=== PATIENT | male | born 1940 | race Caucasian/White ===

== ENCOUNTER 2018-07-16 10:00 | Emergency (ER) | payer MEDICARE ==
[2018-07-16 10:21] VITALS: TEMP 98.8
--- NOTE | 2018-07-16 10:41 | ED.PDOC ---
History of Present Illness - General Chief Complaint: Lower Extremity Injury Stated Complaint: right ankle pain and swelling Time Seen by Provider: 07/16/18 10:05 Source: patient Exam Limitations: no limitations - History of Present Illness Initial Comments: Hung Polanco 78 y/o male stated that he fell off a ladder at home one week ago 08 July 2018 at his house in [place] was seen initially in [facility] ER but was transported to Trauma center and was work up no intracranial bleed noted since he also takes blood thinner for his A.Fib sent home with diagnosis of concussion .But since incident had also been having dull steady right ankle pain with pain on weight bearing since incident. Occurred: last week Pain - Lower Extremity: moderate: Right Ankle Method of Injury: fell, other - see hpi Improving Factors: rest Worsening Factors: movement Associated Symptoms: pain Allergies/Adverse Reactions: Allergies NO KNOWN ALLERGY Allergy (Verified 07/16/18 10:18) Home Medications: Ambulatory Orders Colchicine W/ Probenecid [Probenecid/Colchicine 0.5-500 mg] 1 tab PO BID 7 Days #30 tab 07/16/18 predniSONE 20 mg PO DAILY #10 tab 07/16/18 Review of Systems - Review of Systems Constitutional: States: no symptoms reported EENTM: States: no symptoms reported Respiratory: States: no symptoms reported Cardiology: States: no symptoms reported Gastrointestinal/Abdominal: States: no symptoms reported Genitourinary: States: no symptoms reported Musculoskeletal: States: see HPI Skin: States: no symptoms reported Past Medical History (General) - Patient Medical History Hx Cardiac Disorders: Yes - A-fib Hx Hypertension: Yes Hx Cancer: Yes - melanoma Surgical History: other - knee right - Vaccination History Hx Influenza Vaccination: No - Social History Hx Tobacco Use: No Hx Alcohol Use: Yes - occasional Hx Substance Use: No Hx Depression: No Family Medical History - Family History Mother Family History: Unknown Hx Family Hypertension: Yes - multiple family member Hx Cardiac Disease: Yes - multiple family member Hx Family Diabetes: Yes - multiple family memeber Physical Exam - Physical Exam General Appearance: Alert, Comfortable, No apparent distress Eyes, Ears, Nose, Throat: normal ENT inspection Neck: non-tender, full range of motion, supple Cardiovascular/Respiratory: normal peripheral pulses, no JVD, normal breath sounds, irregularly irregular - controlled ventricular rate Gastrointestinal/Abdominal: non-tender, no organomegaly Back: no CVA tenderness, no vertebral tenderness Thigh/Hip: non-tender, normal ROM Leg: non-tender, no evidence of injury Ankle: non-tender, limited ROM - painful medial malleolus right-inversion , eversion less on plantar flexion Progress - Progress Progress: 07/16/18 10:45 Vital Signs - 8 hr 07/16/18 10:09 Temperature 98.8 F Pulse Rate [ 47 L pulse ox] Respiratory 20 Rate Blood Pressure 139/76 [Right Arm] O2 Sat by Pulse 98 Oximetry - Results/Orders Results/Orders: Laboratory Results - last 24 hr 07/16/18 10:58 Uric Acid 9.0 H - EKG/XRAY/CT XRAY: ankle - no fracture right Departure - Departure Clinical Impression: Ankle pain, right Qualifiers: Chronicity: unspecified Qualified Code(s): M25.571 - Pain in right ankle and joints of right foot Gout attack Qualifiers: Gout site: ankle Gout etiology: unspecified cause Laterality: right Qualified Code(s): M10.9 - Gout, unspecified Time of Disposition: 11:49 Disposition: Discharge to Home or Self Care Departure Forms: ED Discharge - Pt. Copy, Patient Portal Self Enrollment Instructions: Gout (DC), Lifestyle Changes to Manage Gout, Gout, Low Purine Diet Prescriptions: Colchicine W/ Probenecid [Probenecid/Colchicine 0.5-500 mg] 1 tab PO BID 7 Days #30 tab predniSONE 20 mg PO DAILY #10 tab Home Medications: Ambulatory Orders Colchicine W/ Probenecid [Probenecid/Colchicine 0.5-500 mg] 1 tab PO BID 7 Days #30 tab 07/16/18 predniSONE 20 mg PO DAILY #10 tab 07/16/18 Additional Instructions: Follow up with primary Md in [place] for re check
--- NOTE | 2018-07-16 11:04 | RAD ---
EXAM DESCRIPTION: Ankle,Right 3 Views (accession [id number]), Tibia/Fibula,Right (accession [id number]) CLINICAL HISTORY: pain COMPARISON: None FINDINGS: Three x-ray views of the right ankle, and two views of the right tibia and fibula were submitted. There is no acute fracture or dislocation. Bone mineralization is within normal limits. There is no radiopaque foreign body material. There is an enthesophyte at the plantar aspect of the calcaneus and insertion of the Achilles tendon. IMPRESSION: No acute fracture or dislocation. Electronically signed by: Hector Mccauley MD 07/16/2018 11:03 AM CDT
--- NOTE | 2018-07-16 11:04 | RAD ---
EXAM DESCRIPTION: Ankle,Right 3 Views (accession [id number]), Tibia/Fibula,Right (accession [id number]) CLINICAL HISTORY: pain COMPARISON: None FINDINGS: Three x-ray views of the right ankle, and two views of the right tibia and fibula were submitted. There is no acute fracture or dislocation. Bone mineralization is within normal limits. There is no radiopaque foreign body material. There is an enthesophyte at the plantar aspect of the calcaneus and insertion of the Achilles tendon. IMPRESSION: No acute fracture or dislocation. Electronically signed by: Hector Mccauley MD 07/16/2018 11:03 AM CDT
[2018-07-16 12:14] VITALS: BP 157/79; O2SAT 97
== END 2018-07-16 12:00 | disposition home or self-care (01) ==
LOC: ER 10:00
DX: M10.9 Gout, unspecified (principal); M25.571 Pain in right ankle and joints of right foot; I48.91 Unspecified atrial fibrillation; I10 Essential (primary) hypertension; Z85.820 Personal history of malignant melanoma of skin